=== PATIENT | male | born 1980 | race African-American/Black ===

== ENCOUNTER 2020-03-08 10:14 | Emergency (ER) | payer SELFPAY ==
[2020-03-08] MEDS ORDERED: NORMAL SALINE 1000 ML 1,000 ML IV ONE (12:11)
[2020-03-08] MEDS ORDERED: ONDANSETRON HCL INJ/PF 4 MG/2 ML SDV IV ONE (12:11)
--- NOTE | 2020-03-08 12:18 | ER Document Report ---
ED GI/ - General Chief Complaint: Nausea/Vomiting Stated Complaint: VOMITING Time Seen by Provider: 03/08/20 11:49 Mode of Arrival: Ambulatory Information source: Patient, [facility] Records Notes: This 39-year-old male patient comes emergency room complaining of no appetite with nausea vomiting for the past 2 days. He states he was trying water without success. He then this morning went to [employer] which has worked when this occurred in the past, but it was unsuccessful and he continued vomiting. He states he last urinated between 8 AM and 9 AM this morning, and the urine was not dark appearing. There is no abdominal pain, no cough, no nasal congestion, no change in taste or smell. No fevers. TRAVEL OUTSIDE OF THE [place] IN LAST 30 DAYS: No - Related Data Allergies/Adverse Reactions: No Known Allergies Allergy (Verified 03/08/20 11:59) Past Medical History - General Information source: Patient - Social History Smoking Status: Former Smoker Cigarette use (# per day): No Chew tobacco use (# tins/day): No Smoking Education Provided: No Frequency of alcohol use: Social Drug Abuse: Marijuana - Daily use of marijuana Lives with: Spouse/Significant other Family History: Reviewed & Not Pertinent Patient has homicidal ideation: No - Past Medical History Cardiac Medical History: Reports: Hx Hypertension - Patient states he only takes medication when he is incarcerated. Surgical Hx: Other - Once had sutures placed in a finger wound. - Immunizations Hx Diphtheria, Pertussis, Tetanus Vaccination: Yes Physical Exam - Vital signs Vitals: Temp Pulse Resp BP Pulse Ox 98.5 F 87 16 175/123 H 98 03/08/20 11:13 03/08/20 11:13 03/08/20 11:13 03/08/20 11:13 03/08/20 11:13 Course - Re-evaluation Re-evalutation: 03/08/20 13:22 Patient's urine shows a specific gravity of 1.034, with 20 ketones. His second liter of fluids will be D5LR. He is feeling better after the Zofran and was requesting some water to drink. 03/08/20 14:43 The patient reports he is feeling much better at this time. He is tolerating oral fluids, he feels comfortable going home. - Vital Signs Vital signs: Temp Pulse Resp BP Pulse Ox 98.5 F 87 16 175/123 H 98 03/08/20 11:30 03/08/20 11:13 03/08/20 11:13 03/08/20 11:13 03/08/20 11:13 - Laboratory Result Diagrams: 03/08/20 12:45 03/08/20 12:45 Laboratory results interpreted by me: 03/08/20 03/08/20 03/08/20 12:45 12:45 12:45 RBC 5.83 H Hgb 18.0 H Hct 52.6 H Calcium 10.3 H Total Protein 9.5 H Albumin 5.5 H Urine Protein 100 H Urine Ketones 20 H Discharge - Discharge Clinical Impression: Dehydration Nausea and vomiting Qualifiers: Vomiting type: unspecified Vomiting Intractability: non-intractable Qualified Code(s): R11.2 - Nausea with vomiting, unspecified Condition: Stable Disposition: HOME, SELF-CARE Additional Instructions: Nausea or Vomiting, Nonspecific: Vomiting (or nausea without vomiting) can be caused by many different problems. Of course, it can mean that something's wrong with the stomach, such as "stomach flu," ulcers, or inflammation. But it can also be a symptom of a problem that has nothing to do with the stomach or intestines. Vomiting is common with severe headaches, earaches, and tonsillitis. We see it with pneumonia or heart attacks. Drugs can cause nausea. Many abdominal problems cause vomiting; for example, gallstones, kidney stones, pancreatitis, and intestinal obstruction (blocked bowels). In most cases, curing the vomiting depends on fixing the problem that caused it. For temporary relief, we may use an anti-nausea medicine. For home use, we can prescribe suppositories, chewable pills, pills that dissolve in the mouth, or liquid anti-nausea drugs. If the vomiting seems to be caused by a problem in the stomach, acid-suppressing drugs may be prescribed as well. It's important to avoid dehydration. Sip clear liquids. Take increasing amounts of fluid over the first 24 hours. Then start small amounts of bland foods (such as dry toast, applesauce, mashed potato). Avoid aspirin, tobacco, and alcohol. Gradually resume your usual diet. If the vomiting worsens, if the problem that's making you vomit worsens, or if there's evidence of bleeding in the stomach (such as black, tarry stool, bloody or black vomit, or lightheadedness), you should return immediately. Call your doctor if you aren't improved in 24 to 36 hours. Take the Zofran as dispensed for nauseousness if needed. You were given a prescription for Zofran if you need additional medication. Drink plenty of cool clear liquids today. Get plenty of rest. Follow-up with a local medical doctor if not improving. RETURN TO THE EMERGENCY ROOM IF ANY NEW OR WORSENING SYMPTOMS. Prescriptions: Ondansetron [Zofran Odt 4 mg Tablet] 1 - 2 tab PO Q4H PRN #10 tab.rapdis PRN Reason:
[2020-03-08 13:16] LABS: APPEARANCE,URINE CLEAR; BILIRUBIN,URINE NEGATIVE (NEGATIVE); GLUCOSE, URINE NEGATIVE (NEGATIVE); KETONES,URINE 20 mg/dL (NEGATIVE); LEUKOCYTE ESTERASE,URINE NEGATIVE (NEGATIVE); NITRITE,URINE NEGATIVE (NEGATIVE); PROTEIN,URINE 100 mg/dL (NEGATIVE); URINE SPECIFIC GRAVITY 1.034; UROBILINOGEN,URINE NEGATIVE mg/dL (<2.0)
[2020-03-08 13:18] LABS: COLOR,URINE DARK YELLOW
[2020-03-08] MEDS ORDERED: DEXTROSE 5%-LACTATED RINGERS 1,000 ML IV ONE (13:21)
[2020-03-08 13:26] LABS: ALBUMIN 5.5 g/dL (3.5-5.0); ALKALINE PHOSPHATASE 85 U/L (38-126); ANION GAP 12 (5-19); ASPARTATE AMINO TRANSFERASE 40 U/L (17-59); BLOOD UREA NITROGEN 14 mg/dL (7-20); CALCIUM 10.3 mg/dL (8.4-10.2); CARBON DIOXIDE 26 mmol/L (22-30); CHLORIDE 100 mmol/L (98-107); CREATINE KINASE 168 U/L (55-170); GLUCOSE 93 mg/dL (75-110); POTASSIUM 4.5 mmol/L (3.6-5.0); TOTAL PROTEIN 9.5 g/dL (6.3-8.2)
[2020-03-08 13:30] LABS: ABSOLUTE BASOPHILS # (AUTO) 0.1 10^3/uL (0.0-0.2); ABSOLUTE LYMPHOCYTES (AUTO) 1.6 10^3/uL (0.5-4.7); ABSOLUTE MONOCYTES (AUTO) 0.3 10^3/uL (0.1-1.4); ABSOLUTE NEUT (AUTO) 3.2 10^3/uL (1.7-8.2); BASOPHILS % (AUTO) 1.3 % (0-2); EOSINOPHILS % (AUTO) 0.8 % (0-6); HEMATOCRIT 52.6 % (37.9-51.0); LYMPHOCYTES % (AUTO) 30.2 % (13-45); MEAN CORPUSCULAR HEMOGLOBIN 30.8 pg (27.0-33.4); MEAN CORPUSCULAR HGB CONC 34.1 g/dL (32.0-36.0); MEAN CORPUSCULAR VOLUME 90 fl (80-97); MONOCYTES % (AUTO) 6.4 % (3-13); PLATELET COUNT 298 10^3/uL (150-450); RED BLOOD COUNT 5.83 10^6/uL (4.35-5.55); RED CELL DISTRIBUTION WIDTH 13.6 % (11.5-14.0); SEGMENTED NEUTROPHILS % (AUTO) 61.3 % (42-78); TOTAL CELLS COUNTED % (AUTO) 100 %; WHITE BLOOD COUNT 5.2 10^3/uL (4.0-10.5)
[2020-03-08] MEDS ORDERED: ONDANSETRON ODT 4 MG TAB (6 TAB/ER DISP) PO PRN (15:06)
[2020-03-08 15:41] VITALS: BP 168/117
== END 2020-03-08 15:43 | disposition home or self-care (01) ==
LOC: ER 10:14
DX: R11.2 Nausea with vomiting, unspecified (principal); E86.0 Dehydration; R63.0 Anorexia; F12.10 Cannabis abuse, uncomplicated; I10 Essential (primary) hypertension; Z87.891 Personal history of nicotine dependence
CPT/HCPCS: 99283; 96361; 96374; 36415; 82550; 85025; 80053; 81001; J2405; J7121; J7030